=== PATIENT | female | born 1970 | race Caucasian/White ===

== ENCOUNTER 2020-06-13 08:15 | Emergency (ER) | payer OTHER ==
[~2020-06-13] VITALS: Ht 144.8 cm; Wt 56.7 kg
[2020-06-13 09:30] VITALS: BP 116/52
== END 2020-06-13 10:00 | disposition home or self-care (01) ==
LOC: ER 08:15
DX: M25.552 Pain in left hip (principal); R20.0 Anesthesia of skin; V49.69XA Unspecified car occupant injured in collision with other motor vehicles in traffic accident, initial encounter; Y93.89 Activity, other specified; Y92.488 Other paved roadways as the place of occurrence of the external cause; Y99.8 Other external cause status; F17.210 Nicotine dependence, cigarettes, uncomplicated

== ENCOUNTER → 2020-06-24 | Outpatient (CLI) | payer OTHER | LOC: RAD 14:52 | PROVIDERS: ATTEND Nurse Practitioner | DX: S20.229A Contusion of unspecified back wall of thorax, initial encounter (principal); V89.2XXA Person injured in unspecified motor-vehicle accident, traffic, initial encounter; Y93.89 Activity, other specified; Y92.89 Other specified places as the place of occurrence of the external cause; Y99.8 Other external cause status ==